=== PATIENT | male | born 1955 | race African-American/Black ===

== ENCOUNTER 2016-10-17 18:41 | Inpatient (IN) ==
[2016-10-17] MEDS ORDERED: FUROSEMIDE 40 MG/4 ML VIAL IV STA (19:11)
[2016-10-17] MEDS ORDERED: FUROSEMIDE 40 MG/4 ML VIAL ONE (19:38)
--- NOTE | 2016-10-17 19:54 | XRay Report ---
XR chest 1V portable Indication: Shortness of breath. Comparison: None. Technique: Portable AP chest was performed. Findings: Heart size is normal. Pulmonary vasculature appears within normal limits. No significant abnormality of the mediastinal contours demonstrated. Lungs are clear. Mild elevation of the right hemidiaphragm is present. Bones and soft tissues demonstrate no significant abnormalities. AICD is present. No break in continuity is suggested. Impression: 1. No evidence of acute pathology. 10/17/2016 7:48 PM PROCEDURE INTERPRETED AT [facility] DEPARTMENT OF RADIOLOGY Final Report Signed by: Dr. Mani Harmon
[2016-10-17 20:06] LABS: Apearance,Urine CLEAR (Clear); Bilirubin,Urine Negative (Negative); Blood, Urine Small mg/dL (Negative); Glucose,Urine (UA) Negative (Negative); Ketones,Urine Negative (Negative); Mucus,Urine Occasional /LPF (Occasional); Nitrite,Urine Negative (Negative); Protein,Urine Negative; RBC,Urine <1 /HPF (0-4); Urine Color Yellow (Yellow); Urine Specific Gravity 1.011 (1.001-1.035); Urine Urobilinogen < 2.0 EU/DL (0.2-1.0)
[2016-10-17 20:31] LABS: Basophils % 0.3 % (0.0-0.8); Eosinophils # 0.1 10*3/uL (0.0-0.87); Eosinophils % 1.4 % (0.00-10.9); Hematocrit 40.4 VOL% (42.0-52.0); Hemoglobin 13.9 GM/DL (14.0-18.0); Immature Granulocytes % 0.3 %; Immature Granulocytes Absolute 0.03 #; Lymphocytes # 0.7 10*3/uL (1.4-4.0); Mean Corpuscular HGB Conc 34.4 GM/DL (32-36); Mean Corpuscular Hemoglobin 29 PG (27-34); Mean Corpuscular Volume 84.3 FL (87-102); Monocytes # 0.6 10*3/uL (0.11-0.8); Monocytes % 6.3 % (1.7-12.7); Neutrophils # 7.3 10*3/uL (1.4-7.4); Neutrophils % 83.7 % (38.7-73.9); Platelet Count 129 T/CUMM (130-400); Red Blood Count 4.79 MC/CUMM (3.8-5.5); Red Cell Distribution Width 19.1 % (9.3-17.3); White Blood Count 8.7 T/CUMM (4-12)
[2016-10-17] MEDS ORDERED: ALBUTEROL/IPRATROPIUM 3 ML NEB RESP TX STA (20:50)
[2016-10-17 20:52] LABS: ABG Base Excess 4.4 MMOL/L (-2.5-2.5); ABG HCO3 28.3 MMOL/L (20-26); ABG Oxygen Saturation 99.5 % (95-100); ABG PCO2 48.9 MM HG (35-48); ABG TCO2 26.2 MMOL/L (23-27)
[2016-10-17 20:53] LABS: Alanine Aminotransferase 27 U/L (16-61); Albumin 4.2 G/DL (3.4-5.0); Alkaline Phosphatase 98 U/L (45-117); Aspartate Amino Transferase 16 U/L (0-37); Bilirubin,Total < 0.39 MG/DL (0.2-1.0); Blood Urea Nitrogen 9 MG/DL (7-18); Calcium 8.9 MG/DL (8.5-10.1); Glucose 98 MG/DL (74-106); Osmolality,Calculated 277.4 MOS/KG (273-304); Potassium 3.9 MMOL/L (3.5-5.1); Sodium 140 MMOL/L (136-145); Total Protein 7.8 G/DL (6.4-8.3); Troponin I Only < 0.015 NG/ML (0.00-0.045)
[2016-10-17] MEDS ORDERED: methylPREDNISolone SOD SUC 125 MG/2 ML VIAL IV STA (21:32)
[2016-10-17] MEDS ORDERED: ONDANSETRON 4 MG/2 ML VIAL IV PRN (21:37)
[2016-10-17] MEDS ORDERED: ZALEPLON 5 MG CAPSULE PO PRN (21:37)
--- NOTE | 2016-10-17 21:38 | Emergency Department Note ---
IKenzie Mantricia, am scribing for, and in the presence of, Obi Gordon MD 19:16. Heidi Bates Hans, MD, personally performed the services described in this documentation, ascribed by Isma Espino in my presence, and it is both accurate and complete . Arrival - Arrival Chief Complaint: Shortness of Breath Stated Complaint: sob ED Nursing Triage Note: pt to er 12 via ems coming from home with sob onset this am around 0700. pt denies any cp. Mode of Arrival: Stretcher Limitations: No Limitations Source: Patient - History of Present Illness HPI Narrative: Pt is a 61 y/o black male arriving to ED by EMS with c/o SOB that onset 0700 this morning. He denies having any chest pain but does report that he has a pacemaker placed. 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 He does admit to smoking in the past. At time of exam, pt's blood pressure is 130/77. No other complaints were reported to ED. Onset (ago): hour(s) Consistency: constant Severity: moderate Allergies/Adverse Reactions: Allergies Allergy/AdvReac Type Severity Reaction Status Date / Time No Known Allergies Allergy Unverified 10/17/16 18:50 Home Medications: Home Medications Medication Instructions Recorded Confirmed Type Aspirin EC Tab 81 mg PO DAILY 10/17/16 10/17/16 History Atorvastatin [Lipitor] 20 mg PO DAILY 10/17/16 10/17/16 History Hydrocodone/Acetaminophen [[place] 1 each PO BID 10/17/16 10/17/16 History 10-325 Tablet] Levothyroxine Tab [Synthroid Tab] 150 mcg PO DAILY 10/17/16 10/17/16 History Niacin (Inositol Niacinate) 500 mg PO DAILY 10/17/16 10/17/16 History [Niacin 500 mg Capsule] Omeprazole 20 mg PO DAILY 10/17/16 10/17/16 History Quetiapine Fumarate 800 mg PO BEDTIME 10/17/16 10/17/16 History buPROPion [Wellbutrin] 100 mg PO DAILY 10/17/16 10/17/16 History Review of System - Review of System 12 point system: reviewed and no additional remarkable complaints except as stated - Review of System Constitutional: Absent: chills, diaphoresis, fever Respiratory: Present: other (SOB). Absent: cough Cardiovascular: Absent: chest pain Gastrointestinal: Absent: abdominal pain, nausea, vomiting, diarrhea Medical,Surgical,& Family Hx - Social History Smoking Status: Current every day smoker Frequency of Alcohol Use: Occasionally Type of Drug Use: None Exam Vital Signs: Vital Signs Temperature 98.0 F 10/17/16 18:43 Pulse Rate 94 H 10/17/16 18:43 Respiratory Rate 20 10/17/16 19:08 Blood Pressure 114/73 10/17/16 18:43 O2 Sat by Pulse Oximetry 99 10/17/16 18:43 - General General appearance: alert, in no apparent distress - Head Head exam: Present: atraumatic, normocephalic - Eye Eye exam: Present: normal appearance, PERRL, EOMI - ENT ENT exam: Present: normal exam, normal oropharynx, mucous membranes moist - Neck Neck exam: Present: normal inspection - Chest Chest inspection: Present: normal inspection - Respiratory Respiratory exam: Present: other (bilateral crackles) - Cardiovascular Cardiovascular exam: Present: regular rate, normal rhythm, normal heart sounds - Abdominal Exam Abdominal exam: Present: soft. Absent: distention, tenderness, guarding, rebound - Extremities Exam Extremities exam: Present: normal inspection - Back Exam Back exam: Present: normal inspection - Neurological Exam Neurological exam: Present: alert, oriented X3, CN II-XII intact - Psychiatric Psychiatric exam: Present: normal affect, normal mood - Skin Skin exam: Present: warm, dry, intact, normal color Course Course Narrative: This patient was evaluated in the ER and also treated with BiPAP settings of 12/ 5 with 40% of FiO2. His ABG did not look too bad and his initial treatment was based on a diagnosis of CHF exacerbation. He had a Sanz catheter placed and responded promptly to IV Lasix. His EKG and troponin did not show any evidence of cardiac issues acutely and his BNP actually ended up coming back normal. Once he was on BiPAP for a little while he had a little bit of wheezing and does have a history of smoking and COPD so we also treated him with a neb treatment and some steroids. It appears as though this is a mixed CHF/COPD exacerbation and I discussed with the hospitalist on-call who agreed to come and see him for admission. Results - Labs CBC & BMP: 10/17/16 19:00 10/17/16 19:00 Lab Results: I have reviewed the patients labs - Diagnostic Findings Procedure: Chest x-ray: report reviewed by me (No evidence of acute pathology. ) Disposition Clinical Impression: Congestive heart failure, Acute exacerbation of chronic obstructive airways disease Case discussed with: patient Disposition: Still a Patient Condition: Guarded Time of Disposition: 21:38
[2016-10-17] MEDS ORDERED: POTASSIUM CHLORIDE 20 MEQ TABLET PO ONE (21:40)
--- NOTE | 2016-10-17 21:41 | Hospitalist History & Physical ---
Assessment and Plan (1) Acute exacerbation of chronic obstructive airways disease Status: Acute Assessment and plan: Consult pulmonary Antibiotics, steroids, bronchodilators Repeat chest x-ray in a.m. Current Visit: Yes (2) Congestive heart failure Status: Acute Assessment and plan: Cardiology consult, IV Lasix, echocardiogram Current Visit: Yes Qualifiers: Congestive heart failure type: unspecified congestive heart failure type Congestive heart failure chronicity: unspecified congestive heart failure chronicity Qualified Code(s): I50.9 - Heart failure, unspecified (3) Hypothyroid Status: Acute Assessment and plan: Continue Synthroid Current Visit: Yes Qualifiers: Hypothyroidism type: acquired Qualified Code(s): E03.9 - Hypothyroidism, unspecified History of Present Illness Chief complaint: SOB, cough History of present illness: Mr. Sen is a 61 year old male presents to the ER with a 2-3 day hx of cough, wheezing, and SOB. He denies fever or chills. No recent hospitalizations. He has a history of pacemaker placement. He follows with cardiology in [place]. He lives in [facility]. He cannot name his primary care physician. He reports a history of smoking 1 pack per day but denies COPD. He denies a history of congestive heart failure. Judging by his medications he has thyroid disease and hypercholesterolemia. He is unable to provide much history. He is conversationally dyspneic and has audible wheezing and rhonchi. Symptoms have been progressive over the last 3-4 days. He received Lasix in the emergency department and has had a good urine output since that time. Home Medications Medication Instructions Recorded Confirmed Type Aspirin EC Tab 81 mg PO DAILY 10/17/16 10/17/16 History Atorvastatin [Lipitor] 20 mg PO DAILY 10/17/16 10/17/16 History Hydrocodone/Acetaminophen [[place] 1 each PO BID 10/17/16 10/17/16 History 10-325 Tablet] Levothyroxine Tab [Synthroid Tab] 150 mcg PO DAILY 10/17/16 10/17/16 History Niacin (Inositol Niacinate) 500 mg PO DAILY 10/17/16 10/17/16 History [Niacin 500 mg Capsule] Omeprazole 20 mg PO DAILY 10/17/16 10/17/16 History Quetiapine Fumarate 800 mg PO BEDTIME 10/17/16 10/17/16 History buPROPion [Wellbutrin] 100 mg PO DAILY 10/17/16 10/17/16 History Allergies Allergy/AdvReac Type Severity Reaction Status Date / Time No Known Allergies Allergy Unverified 10/17/16 18:50 Medical,Surgical,& Family Hx - Medical History Cardio: History of: Hypertension, Pacemaker Psychological: History of: Depression Endocrine: History of: Thyroid Disorder - Surgical History Additional Surgical History: Pacemaker placement - Family History Family History: Reports;: Family Hypertension - Social History Smoking Status: Current every day smoker (1 pack per day) Have you smoked in the last 12 months: Yes Frequency of Alcohol Use: Occasionally Type of Drug Use: None Marital Status: Functional capacity: independent ambulation 12 point system: reviewed and no additional remarkable complaints except as stated - Respiratory Respiratory: Present: cough, dyspnea, wheezing Exam - Constitutional Vitals: Period Temp Pulse Resp BP Sys/[place] Rosario Pulse Ox Last 24 Hr 98.0 F-98.0 F 94-94 20-20 114-114/73-73 99 Exam: Constitutional System: Mild distress. No tremulousness. Head: Normocephalic, atraumatic. Ears, Nose and Throat System: No pain or tenderness. No epistaxis or discharge Eyes System: Pupils equal, round, and reactive. Extraocular muscles intact. Neck: Supple, without adenopathy, No jugular venous distention. No thyromegaly, neck mass, or prior surgery apparent. Respiratory System: Chest wheezing and rhonchi noted bilaterally Cardiovascular System: Heart with regular rate and rhythm. No murmur. Pacemaker noted GI System: Abdomen soft, nontender. Normo active bowel sounds present. Musculoskeletal System: limbs with no pedal edema. Full distal pulses. Neurological System: No discernable sensory deficit. No aphasia Psychiatric System: Conversation is rational Results - Labs CBC & BMP: 10/17/16 19:00 10/17/16 19:00 Lab Results: I have reviewed the past 24 hour labs - Diagnostic Findings Procedure: Chest x-ray: image reviewed by me, report reviewed by me
[2016-10-17] MEDS ORDERED: methylPREDNISolone SOD SUC 125 MG/2 ML VIAL ONE (22:14)
[2016-10-17] MEDS: methylPREDNISolone SOD SUC 40 MG/1 ML VIAL IV SCH (23:40)
[2016-10-17] MEDS: LEVOFLOXACIN INJ 750 MG in PREMIX 1 EACH IV SCH (23:41)
[2016-10-18] MEDS: ALBUTEROL/IPRATROPIUM 3 ML NEB RESP TX SCH ×4 (01:18→19:22)
[2016-10-18 04:48] LABS: Calcium 8.5 MG/DL (8.5-10.1); Magnesium 2.5 MG/DL (1.8-2.4); Osmolality,Calculated 278.5 MOS/KG (273-304); Potassium 4.4 MMOL/L (3.5-5.1); Risk Ratio 2.39; VLDL CHOLESTEROL 12.8 MG/DL
[2016-10-18] MEDS: methylPREDNISolone SOD SUC 40 MG/1 ML VIAL IV SCH ×3 (06:36→23:13)
[2016-10-18] MEDS: LEVOTHYROXINE 150 MCG TABLET PO SCH (06:36)
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
--- NOTE | 2016-10-18 08:03 | XRay Report ---
XR chest 1V portable Indication: Shortness of breath Comparison: 17 October 2016 Findings: The heart and mediastinum are stable in size and configuration. Pacemaker device is unchanged in position. The pulmonary vascularity is normal in caliber. No lung infiltrates, effusions, pneumothorax or other abnormality is demonstrated. Impression: No acute cardiopulmonary disease. PROCEDURE INTERPRETED AT [facility] DEPARTMENT OF RADIOLOGY Final Report Signed by: Dr. Mario Alexandre
--- NOTE | 2016-10-18 08:52 | Hospitalist Progress Note ---
Hospitalist: Subjective Interval history: Mr. Sen is a 61 BM who presented to the emergency room with a 2-3 day history of coughing, wheezing, and shortness of breath. The patient reports that over the last 2-3 days his breathing significantly worsened with wheezing noted. He denies any change in medications, illicit drug use, or variation in his normal medical regimen. The patient has a history of cardiac pacemaker, long-term smoker, and denies a history of heart failure. The patient was seen in ICU and is a poor historian. The patient is known to Dr. Sanon out of [place], Cardiology. The patient denies any cardiac history other than a recent pacemaker placement. The patient insists that he is very active daily without chest pain, discomfort, or tightness. He denies any swelling in his lower extremities or otherwise. The patient denies fever, chills, nausea, vomiting and admits a productive cough, wheezing, and shortness of breath. Patient is being treated for bronchitis and COPD exacerbation. Chest x-ray and BNP are negative for congestive heart failure. Cardiac biomarkers are negative. Cardiology plans to perform an echocardiogram today. There is their recommendation to continue management for acute exacerbation of chronic obstructive pulmonary disease. I will obtain a pulmonary consultation. Exam - Constitutional Vitals: Period Temp Pulse Resp BP Sys/[place] Rosario Pulse Ox Last 24 Hr 96.8 F-98.9 F 68-94 12-30 114-143/73-95 94-100 General appearance: no acute distress - Head Head exam: Present: normal inspection - Neck Neck exam: Present: normal inspection - Respiratory Respiratory exam: Present: rhonchi (Scattered), wheezes (Mild) - Cardiovascular Cardiovascular exam: Present: regular rate and rhythm - GI/Abdominal GI/Abdominal exam: Present: normal bowel sounds, soft, other (Nontender with no palpable masses or hepatosplenomegaly.) - Extremities Exam Extremities exam: Present: normal inspection - Neurological Exam Neurological exam: Present: alert, oriented X3 - Psychiatric Psychiatric exam: Present: normal affect - Skin Skin exam: Present: normal color, warm Results - Labs CBC & BMP: 10/17/16 19:00 10/18/16 04:08 Specialty Discharge - Follow Up or Referrals
[2016-10-18] MEDS ORDERED: PANTOPRAZOLE 40 MG TABLET PO SCH (09:00)
[2016-10-18] MEDS ORDERED: FUROSEMIDE 40 MG/4 ML VIAL IV SCH (09:00)
[2016-10-18] MEDS: ENOXAPARIN 40 MG/0.4 ML SYRINGE SUBCUT SCH (09:21)
[2016-10-18] MEDS: ATORVASTATIN 20 MG TABLET PO SCH (09:22)
[2016-10-18] MEDS: PANTOPRAZOLE 40 MG TABLET PO SCH (09:22)
[2016-10-18] MEDS: buPROPion 100 MG TABLET PO SCH (09:22)
[2016-10-18] MEDS: ASPIRIN EC 81 MG TABLET PO SCH (09:22)
[2016-10-18] MEDS: NIACIN 500 MG TABLET PO SCH (09:23)
[2016-10-18 09:32] LABS: Basophils % 0.1 % (0.0-0.8); Hematocrit 39.5 VOL% (42.0-52.0); Hemoglobin 13.4 GM/DL (14.0-18.0); Immature Granulocytes % 0.7 %; Immature Granulocytes Absolute 0.05 #; Lymphocytes # 0.6 10*3/uL (1.4-4.0); Lymphocytes % 8.1 % (21.2-54.2); Mean Corpuscular HGB Conc 33.9 GM/DL (32-36); Mean Corpuscular Hemoglobin 29 PG (27-34); Mean Corpuscular Volume 84.9 FL (87-102); Mean Platelet Volume 11.4 FL (9.6-12.0); Monocytes # 0.1 10*3/uL (0.11-0.8); Monocytes % 0.7 % (1.7-12.7); Neutrophils # 6.7 10*3/uL (1.4-7.4); Neutrophils % 90.4 % (38.7-73.9); Platelet Count 133 T/CUMM (130-400); Red Blood Count 4.65 MC/CUMM (3.8-5.5); Red Cell Distribution Width 19.4 % (9.3-17.3); White Blood Count 7.4 T/CUMM (4-12)
--- NOTE | 2016-10-18 09:44 | EKG Report ---
Stationary ECG Study [facility] ER Test Date: 10/17/2016 6:38:48 PM Pat Name: TORY MATT Department: Room: 123 Gender: M Data Specialist: : 1955 Requested by: Obi Gordon Order Number: [id number] Reading MD: ALEXANDRIA SOLARES Intervals [place] Rate: 95 P: -12 NC: 161 QRS: 142 QRSD: 170 T: -28 QT: 418 QTc: 471 Interpretive Statements ELECTRONIC VENTRICULAR PACEMAKER ABNORMAL RHYTHM ECG Electronically Signed On 10-18-16 14:01:01 CDT by ALEXANDRIA SOLARES [email or web address]
[2016-10-18 09:46] LABS: Calcium 9.3 MG/DL (8.5-10.1); Osmolality,Calculated 282.5 MOS/KG (273-304); Potassium 4.2 MMOL/L (3.5-5.1)
[2016-10-18 09:55] LABS: Free T4 (Free Thyroxine) 1.02 NG/DL (0.76-1.46); Thyroid Stimulating Hormone 0.567 uIU/ml (0.358-3.74)
--- NOTE | 2016-10-18 17:47 | ECHO Report ---
Mahad Sen Exam Date: 10/18/2016 08:14 Referring Physician: Technologist: Crista Moe Age: 61 Ht (in): 73 Wt (lb): 270 Gender: M Exam Location: [facility] Echo Indications: CHF, COPD, hypothyroidism, Tobacco abuse, blindness RT. eye, SOB BP: 141 / 95 HR: 74 Rhythm: Sinus Technical Quality: IMPRESSIONS Normal left ventricular size, with mild concentric hypertrophy, with abnormal septal motion due to paced rhythm, and normal systolic thickening. Estimated left ventricular ejection fraction 55%. Grade 1 diastolic dysfunction. Mild biatrial enlargement. The pacemaker leads are not well visualized on this echo. MEASUREMENTS (Male / Female) Normal Values 2D ECHO LV Diastolic Diameter PLAX 4.2 cm 4.2 - 5.9 / 3.9 - 5.3 cm LV Systolic Diameter PLAX 3.0 cm LV Fractional Shortening PLAX 27.7 % IVS Diastolic Thickness 1.1 cm 0.6 - 1.0 / 0.6 - 0.9 cm LVPW Diastolic Thickness 1.1 cm 0.6 - 1.0 / 0.6 - 0.9 cm Aortic Root Diameter 2.5 cm LA Systolic Diameter LX 3.0 cm 3.0 - 4.0 / 2.7 - 3.8 cm FINDINGS Left Ventricle Normal left ventricular size, with mild concentric hypertrophy, with abnormal septal motion due to paced rhythm, and normal systolic thickening. Estimated left ventricular ejection fraction 55%. Grade 1 diastolic dysfunction Right Ventricle Normal right ventricular size and systolic function. Right Atrium Mildly dilated right atrium. Left Atrium Mildly dilated left atrium. Mitral Valve Morphologically normal mitral valve. Trace insufficiency. Aortic Valve The aortic valve is trileaflet and has normal motion. No stenosis or insufficiency. Tricuspid Valve Morphologically normal tricuspid valve. No significant insufficiency, insufficient data to estimate pulmonary artery systolic pressure. Pulmonic Valve Pulmonic valve is not well visualized. Pericardium No pericardial effusion. Aorta Normal size aortic root and proximal ascending aorta. Ham Oreilly (Electronically Signed) Final Date: 18 October 2016 17:46
[2016-10-18] MEDS ORDERED: QUEtiapine 100 MG TABLET PO SCH (21:00)
[2016-10-18] MEDS: LEVOFLOXACIN INJ 750 MG in PREMIX 1 EACH IV SCH (23:12)
[2016-10-19] MEDS: ALBUTEROL/IPRATROPIUM 3 ML NEB RESP TX SCH ×4 (00:34→19:46)
[2016-10-19 03:38] LABS: ABG Base Excess 3.7 MMOL/L (-2.5-2.5); ABG HCO3 27.7 MMOL/L (20-26); ABG Oxygen Saturation 95.1 % (95-100); ABG PCO2 39.5 MM HG (35-48); ABG PH 7.463 (7.35-7.45); ABG TCO2 28.9 MMOL/L (23-27); Allen Test Positive; Pt O2 Delivery Device Room Air
[2016-10-19] MEDS: LEVOTHYROXINE 150 MCG TABLET PO SCH (06:03)
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
[2016-10-19] MEDS: buPROPion 100 MG TABLET PO SCH (08:41)
[2016-10-19] MEDS: ATORVASTATIN 20 MG TABLET PO SCH (08:41)
[2016-10-19] MEDS: methylPREDNISolone SOD SUC 40 MG/1 ML VIAL IV SCH ×2 (08:41→21:53)
[2016-10-19] MEDS: ASPIRIN EC 81 MG TABLET PO SCH (08:41)
[2016-10-19] MEDS: NIACIN 500 MG TABLET PO SCH (08:41)
[2016-10-19] MEDS: PANTOPRAZOLE 40 MG TABLET PO SCH (08:41)
[2016-10-19] MEDS: ENOXAPARIN 40 MG/0.4 ML SYRINGE SUBCUT SCH (08:42)
--- NOTE | 2016-10-19 09:03 | Cardiology Consult Note ---
Santos Bates Lesley, [place], am scribing for, and in the presence of, Ashtyn Robles NP 09:03. Assessment and Plan - Time spent with patient Time spent with patient: Greater than 30 minutes Time spent discussing smoking cessation with patient: 3 to 10 minutes (1) Acute exacerbation of chronic obstructive airways disease Status: Acute Assessment and plan: SEE LIST AND PLAN BELOW Current Visit: Yes (2) Hypothyroid Status: Chronic Assessment and plan: SEE LIST AND PLAN BELOW Current Visit: Yes Qualifiers: Hypothyroidism type: acquired Qualified Code(s): E03.9 - Hypothyroidism, unspecified (3) Tobacco abuse Status: Chronic Assessment and plan: SEE LIST AND PLAN BELOW Current Visit: Yes (4) Cardiac pacemaker Status: Chronic Assessment and plan: SEE LIST IN PLAN BELOW Current Visit: Yes (5) Bronchitis Status: Acute Assessment and plan: SEE LIST IN PLAN BELOW Current Visit: Yes History of Present Illness - Data of Consult Patient: new to practice Consult date: 10/18/16 Requesting Physician: Rachna Grant - Consult Narrative Reason for consult: SOB 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 Sen is a 61 BM who presented to the emergency room with a 2-3 day history of coughing, wheezing, and shortness of breath. The patient reports that over the last 2-3 days his breathing significantly worsened with wheezing noted. He denies any change in medications, illicit drug use, or variation in his normal medical regimen. The patient has a history of cardiac pacemaker, long-term smoker, and denies a history of heart failure. The patient was seen in ICU and is a poor historian. The patient is known to Dr. Sanon out of [place], Cardiology. The patient denies any cardiac history other than a recent pacemaker placement. The patient insists that he is very active daily without chest pain, discomfort, or tightness. He denies any swelling in his lower extremities or otherwise. The patient denies fever, chills, nausea, vomiting and admits a productive cough, wheezing, and shortness of breath. Patient is being treated for bronchitis and COPD exacerbation. Chest x-ray and BNP are negative for congestive heart failure. Cardiac biomarkers are negative. We will plan to get an echocardiogram today. ASSESSMENT/PLAN: 1. Acute COPD exacerbation-wheezes noted bilaterally. Continue antibiotics and steroids. 2. Bronchitis-continue antibiotics and steroids. Followed by pulmonology. 3. Cardiac pacemaker-echocardiogram today. 4. Tobacco use-discussed the merits of tobacco cessation with the patient. CC: Dr. Sanon - Home Medications and Allergies Home Medications: Home Medications Medication Instructions Recorded Confirmed Type Aspirin EC Tab 81 mg PO DAILY 10/17/16 10/17/16 History Atorvastatin [Lipitor] 20 mg PO DAILY 10/17/16 10/17/16 History Hydrocodone/Acetaminophen [[place] 1 each PO BID 10/17/16 10/17/16 History 10-325 Tablet] Levothyroxine Tab [Synthroid Tab] 150 mcg PO DAILY 10/17/16 10/17/16 History Niacin (Inositol Niacinate) 500 mg PO DAILY 10/17/16 10/17/16 History [Niacin 500 mg Capsule] Omeprazole 20 mg PO DAILY 10/17/16 10/17/16 History Quetiapine Fumarate 800 mg PO BEDTIME 10/17/16 10/17/16 History buPROPion [Wellbutrin] 100 mg PO DAILY 10/17/16 10/17/16 History Allergies/Adverse Reactions: Allergies Allergy/AdvReac Type Severity Reaction Status Date / Time No Known Allergies Allergy Unverified 10/17/16 18:50 Review of systems: REVIEW OF SYSTEMS: - Constitutional Constitutional: Present: Fatigue. Absent: syncope, anorexia, night sweats - EENT Eyes: Absent: blurry vision, loss of vision, diplopia Ears: Absent: decreased hearing, ear pain, ear discharge - Cardiovascular Cardiovascular: Denies: chest pain with exertion. Denies edema, palpitations. Absent: chest pain with deep breath, claudication, - Respiratory Respiratory: Present: STEARNS, cough, wheezing. Absent: hemoptysis, change in phlegm color - Gastrointestinal Gastrointestinal: Denies: constipation. Absent: abdominal pain, hematemesis, hematochezia, melena, change in bowel habits, nausea - Genitourinary Genitourinary: Absent: difficulty urinating, dysuria, urinary hesitancy, flank pain - Musculoskeletal Musculoskeletal: Present: back pain Absent: joint swelling, muscle cramps, muscle weakness - Neurological Neurological: Present: normal gait without frequent falls. Absent: dizziness, hemiparesis - Psychiatric Psychiatric: Absent: anxiety, depression, difficulty concentrating - Endocrine Endocrine: Present: fatigue. Absent: cold intolerance, heat intolerance, polyuria, polyphagia, polydipsia - Hematologic/Lymphatic Hematologic/Lymphatic: Present: easy bruising. Absent: easy bleeding, easy bruisability -Integumentary Integumentary: Absent: lesions, rashes, skin breakdown - Constitutional Constitutional: Present: as per HPI - Cardiovascular Cardiovascular: Present: as per HPI, dyspnea. Absent: chest pain at rest, chest pain with activity, edema - Respiratory Respiratory: Present: cough, dyspnea, dyspnea on exertion, wheezing - Gastrointestinal Gastrointestinal: Absent: abdominal pain, change in bowel habits - Neurological Neurological: Present: as per HPI Medical,Surgical,& Family Hx - Medical History Cardio: History of: Hypertension, Pacemaker No history of: CHF (patient denies, no records), CAD Psychological: History of: Depression HEENT: History of: Eye Problem (right eye) Endocrine: History of: Thyroid Disorder Respiratory: History of: COPD - Family History Family History: Reports;: Family Heart Disease, Family Hypertension Denies;: Family Anesthesia Reaction, Family Cancer, Family Diabetes, Family Hematology, Family Psychiatric Problems, Family Stroke - Social History Smoking Status: Current every day smoker (1 pack per day) Have you smoked in the last 12 months: Yes Time spent discussing smoking cessation with patient: 3 to 10 minutes Frequency of Alcohol Use: Occasionally Type of Drug Use: None Functional capacity: independent ambulation Physical Examination Vital Signs Temp Pulse Resp BP Pulse Ox 98.0 F 94 H 20 114/73 99 10/17/16 18:43 10/17/16 18:43 10/17/16 18:43 10/17/16 18:43 10/17/16 18:43 Exam: General: Calm and mildly cooperative. Appears comfortable. HEENT: normocephalic, atraumatic. Mucous membranes moist. No jaundice noted. Conjunctiva moist and clear, sclerae anicteric. Neck: No JVD/HJR, no thyromegaly or lymphadenopathy noted.] Cardiac: Regular rate and rhythm. No murmur rub or gallop. PMI is nondisplaced. Lungs: Bilateral wheezing throughout to auscultation without accessory muscle use to assist the respiratory pattern. Oxygen in use via nasal cannula. Abdomen: Soft, bowel sounds normoactive. Nontender and nondistended. No abdominal bruit or thrill noted. No masses noted. Musculoskeletal: No fluid collection. Extremities: No clubbing, cyanosis noted. No edema noted. Upper extremity pulses 2+. Lower extremity pulses 2+. Capillary refill less than 3 seconds. Skin: No unusual lesions or rashes. No skin breakdown appreciated. Neuro: Awake, alert and oriented 3. Moves all extremities well without hemiparesis or paralysis. No essential tremor is appreciated. Result/EKG - Labs CBC & BMP: 10/18/16 09:03 10/18/16 09:03 Lab Results: I have reviewed the past 24 hour labs Labs: Laboratory Results - last 24 hr 10/17/16 10/17/16 10/17/16 19:00 19:00 19:00 WBC 8.7 RBC 4.79 Hgb 13.9 L Hct 40.4 L MCV 84.3 L MCH 29 MCHC 34.4 RDW 19.1 H Plt Count 129 L Neut % (Auto) 83.7 H Lymph % (Auto) 8.0 L [place] % (Auto) 6.3 Eos % (Auto) 1.4 Baso % (Auto) 0.3 Neut # (Auto) 7.3 Lymph # (Auto) 0.7 L [place] # (Auto) 0.6 Eos # (Auto) 0.1 Baso # (Auto) 0.0 Immature Gran % 0.3 Nucleated RBC % 0.0 Immature Gran # 0.03 Nucleated RBCs # 0.00 Immature Plt Fraction 0.0 ABG pH ABG pCO2 ABG pO2 ABG HCO3 ABG Total CO2 ABG O2 Saturation ABG Base Excess Sodium 140 Potassium 3.9 Chloride 103 Carbon Dioxide 32 Anion Gap 8.9 BUN 9 Creatinine 0.90 GFR Calculation 149 BUN/Creatinine Ratio 10.00 Glucose 98 Hemoglobin A1c Calculated Osmolality 277.4 Lactic Acid Calcium 8.9 Magnesium Total Bilirubin < 0.39 AST 16 ALT 27 Alkaline Phosphatase 98 Total Creatine Kinase CK-MB (CK-2) Troponin I B-Natriuretic Peptide 49 Total Protein 7.8 Albumin 4.2 Globulin 3.6 H Albumin/Globulin Ratio 1.1 Triglycerides Cholesterol LDL Cholesterol VLDL Cholesterol HDL Cholesterol Heart Disease Risk Ratio Lipase 67.0 L Urine Color Urine Appearance Urine pH Ur Specific [place] Urine Protein Urine Glucose (UA) Urine Ketones Urine Blood Urine Nitrate Urine Bilirubin Urine Urobilinogen Urine Leukocytes Urine RBC Urine Mucus Ur Culture Indicated? 10/17/16 10/17/16 10/17/16 19:00 19:12 19:12 WBC RBC Hgb Hct MCV MCH MCHC RDW Plt Count Neut % (Auto) Lymph % (Auto) [place] % (Auto) Eos % (Auto) Baso % (Auto) Neut # (Auto) Lymph # (Auto) [place] # (Auto) Eos # (Auto) Baso # (Auto) Immature Gran % Nucleated RBC % Immature Gran # Nucleated RBCs # Immature Plt Fraction ABG pH ABG pCO2 ABG pO2 ABG HCO3 ABG Total CO2 ABG O2 Saturation ABG Base Excess Sodium Potassium Chloride Carbon Dioxide Anion Gap BUN Creatinine GFR Calculation BUN/Creatinine Ratio Glucose Hemoglobin A1c Calculated Osmolality Lactic Acid 1.3 Calcium Magnesium Total Bilirubin AST ALT Alkaline Phosphatase Total Creatine Kinase 177 CK-MB (CK-2) 2.4 Troponin I < 0.015 B-Natriuretic Peptide Total Protein Albumin Globulin Albumin/Globulin Ratio Triglycerides Cholesterol LDL Cholesterol VLDL Cholesterol HDL Cholesterol Heart Disease Risk Ratio Lipase Urine Color Yellow Urine Appearance Clear Urine pH 5.0 Ur Specific [place] 1.011 Urine Protein Negative Urine Glucose (UA) Negative Urine Ketones Negative Urine Blood Small Urine Nitrate Negative Urine Bilirubin Negative Urine Urobilinogen < 2.0 H Urine Leukocytes Negative Urine RBC <1 Urine Mucus Occasional Ur Culture Indicated? Not indicated 10/17/16 10/18/16 10/18/16 20:43 04:08 04:08 WBC RBC Hgb Hct MCV MCH MCHC RDW Plt Count Neut % (Auto) Lymph % (Auto) [place] % (Auto) Eos % (Auto) Baso % (Auto) Neut # (Auto) Lymph # (Auto) [place] # (Auto) Eos # (Auto) Baso # (Auto) Immature Gran % Nucleated RBC % Immature Gran # Nucleated RBCs # Immature Plt Fraction ABG pH 7.400 ABG pCO2 48.9 H ABG pO2 187.0 H ABG HCO3 28.3 H ABG Total CO2 26.2 ABG O2 Saturation 99.5 ABG Base Excess 4.4 H Sodium 139 Potassium 4.4 Chloride 104 Carbon Dioxide 30 Anion Gap 9.4 BUN 12 Creatinine 0.90 GFR Calculation 130 BUN/Creatinine Ratio 13.00 Glucose 127 H Hemoglobin A1c Calculated Osmolality 278.5 Lactic Acid Calcium 8.5 Magnesium 2.5 H Total Bilirubin AST ALT Alkaline Phosphatase Total Creatine Kinase CK-MB (CK-2) Troponin I B-Natriuretic Peptide 36 Total Protein Albumin Globulin Albumin/Globulin Ratio Triglycerides 64 Cholesterol 165 LDL Cholesterol 76.0 VLDL Cholesterol 12.8 HDL Cholesterol 69 H Heart Disease Risk Ratio 2.39 Lipase Urine Color Urine Appearance Urine pH Ur Specific [place] Urine Protein Urine Glucose (UA) Urine Ketones Urine Blood Urine Nitrate Urine Bilirubin Urine Urobilinogen Urine Leukocytes Urine RBC Urine Mucus Ur Culture Indicated? 10/18/16 04:08 WBC RBC Hgb Hct MCV MCH MCHC RDW Plt Count Neut % (Auto) Lymph % (Auto) [place] % (Auto) Eos % (Auto) Baso % (Auto) Neut # (Auto) Lymph # (Auto) [place] # (Auto) Eos # (Auto) Baso # (Auto) Immature Gran % Nucleated RBC % Immature Gran # Nucleated RBCs # Immature Plt Fraction ABG pH ABG pCO2 ABG pO2 ABG HCO3 ABG Total CO2 ABG O2 Saturation ABG Base Excess Sodium Potassium Chloride Carbon Dioxide Anion Gap BUN Creatinine GFR Calculation BUN/Creatinine Ratio Glucose Hemoglobin A1c 6.2 Calculated Osmolality Lactic Acid Calcium Magnesium Total Bilirubin AST ALT Alkaline Phosphatase Total Creatine Kinase CK-MB (CK-2) Troponin I B-Natriuretic Peptide Total Protein Albumin Globulin Albumin/Globulin Ratio Triglycerides Cholesterol LDL Cholesterol VLDL Cholesterol HDL Cholesterol Heart Disease Risk Ratio Lipase Urine Color Urine Appearance Urine pH Ur Specific [place] Urine Protein Urine Glucose (UA) Urine Ketones Urine Blood Urine Nitrate Urine Bilirubin Urine Urobilinogen Urine Leukocytes Urine RBC Urine Mucus Ur Culture Indicated? - Diagnostic Findings Procedure: Chest x-ray: report reviewed by me - EKG EKG results: interpreted by me, sinus rhythm (Paced) EKG shows: sinus rhythm Specialty Discharge - Follow Up or Referrals Travis Bates Bonnie E, NP, personally performed the services described in this documentation, ascribed by Erica Graham NP in my presence, and it is both accurate and complete .
--- NOTE | 2016-10-19 09:12 | Cardiology Progress Note ---
Assessment and Plan - Time spent with patient Time spent with patient: Greater than 30 minutes (1) Acute exacerbation of chronic obstructive airways disease Status: Acute Assessment and plan: SEE LIST AND PLAN BELOW Current Visit: Yes (2) Hypothyroid Status: Chronic Assessment and plan: SEE LIST AND PLAN BELOW Current Visit: Yes Qualifiers: Hypothyroidism type: acquired Qualified Code(s): E03.9 - Hypothyroidism, unspecified (3) Tobacco abuse Status: Chronic Assessment and plan: SEE LIST AND PLAN BELOW Current Visit: Yes (4) Cardiac pacemaker Status: Chronic Assessment and plan: SEE LIST IN PLAN BELOW Current Visit: Yes (5) Bronchitis Status: Acute Assessment and plan: SEE LIST IN PLAN BELOW Current Visit: Yes Cardiology - PN: Subj Interval history: 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 Sen, 61BM with history of permanent pacemaker implantation by Dr. Sanon of [place], [place]. He does not routinely follow up with cardiology, is a poor historian. Admitted October 17, 2016 for COPD exacerbation , bronchitis. Cardiology was consulted to rule out possible CHF. Echocardiogram: EF 55%, grade 1 diastolic dysfunction, no significant valvular abnormality. Chest x-ray revealed no acute abnormality, proBNP 49. Patient is not in congestive heart failure. Cardiac biomarkers negative, EKG is stable. OCTOBER 19, 2016: Patient has had a fair evening. His breathing has improved with antibiotics and steroids. Still has a moderate amount of wheezing. Denies chest pain, heaviness or tightness. Echocardiogram last evening was unremarkable. No labs this morning. LDL 76, therefore at goal. Continue atorvastatin. Patient's blood pressure is well controlled without antihypertensive. No arrhythmia noted. At this time, will further discuss with Dr. Oreilly and suspect we may sign off this afternoon as there seems to be no active cardiac conditions. Patient will follow up with Dr. Sanon at discharge. ASSESSMENT/PLAN: 1. ACUTE COPD EXACERBATION -improving with steroids and antibiotics. Dr. Hamilton is seen patient today and his tapering his steroids. 2. BRONCHITIS - improving. Continue current plan of care. 3. CARDIAC PACEMAKER -no arrhythmia noted per telemetry. No need for pacemaker interrogation as he follows up with Dr. Sanon in [place], [place]. 4. TOBACCO USE - the merits of tobacco cessation was thoroughly discussed for greater than 5 minutes today Exam (Progress Note) - Constitutional Vitals: Period Temp Pulse Resp BP Sys/[place] Pulse Ox Last 24 Hr 97.8 F-98.7 F 64-88 16-22 92-132/46-80 94-99 Exam: General: [Appears well with no apparent distress.] [Pleasant and cooperative. ] [Appears comfortable.] HEENT: [PERRL, normocephalic, atraumatic. Mucous membranes moist. No jaundice noted. Conjunctiva moist and clear, sclerae anicteric] Neck: No obvious JVD/HJR, no thyromegaly or lymphadenopathy noted. No carotid bruit appreciated Cardiac: [Regular rate and rhythm.] [No murmur rub or gallop.] Lungs: [End expiratory wheezes noted anteriorly and posteriorly, improved. No accessory muscle use to assist the respiratory pattern.] Using oxygen only intermittently. Abdomen: Soft, bowel sounds normoactive. Nontender and nondistended. No abdominal bruit or thrill noted. No masses noted. Musculoskeletal: No fluid collection. Decreased range of motion is noted. Extremities: No clubbing, cyanosis noted. [ No edema noted.] Upper extremity pulses 2+. Lower extremity pulses 2+. Capillary refill less than 3 seconds. Skin: No unusual lesions or rashes. No skin breakdown appreciated. Neuro: Awake, alert and oriented 3. Moves all extremities well without hemiparesis or paralysis. No essential tremor is appreciated. Result/EKG - Labs CBC & BMP: 10/18/16 09:03 10/18/16 09:03 Lab Results: I have reviewed the past 24 hour labs Labs: Laboratory Results - last 24 hr 10/18/16 10/18/16 10/18/16 04:05 09:03 09:03 WBC 7.4 RBC 4.65 Hgb 13.4 L Hct 39.5 L MCV 84.9 L MCH 29 MCHC 33.9 RDW 19.4 H Plt Count 133 MPV 11.4 Neut % (Auto) 90.4 H Lymph % (Auto) 8.1 L [place] % (Auto) 0.7 L Eos % (Auto) 0.0 Baso % (Auto) 0.1 Neut # (Auto) 6.7 Lymph # (Auto) 0.6 L [place] # (Auto) 0.1 L Eos # (Auto) 0.0 Baso # (Auto) 0.0 Immature Gran % 0.7 Nucleated RBC % 0.0 Immature Gran # 0.05 Nucleated RBCs # 0.00 Immature Plt Fraction 8.7 H ABG pH ABG pCO2 ABG pO2 ABG HCO3 ABG Total CO2 ABG O2 Saturation ABG Base Excess FiO2 Sodium 139 Potassium 4.2 Chloride 103 Carbon Dioxide 31 Anion Gap 9.2 BUN 15 Creatinine 1.10 GFR Calculation 102 BUN/Creatinine Ratio 13.00 Glucose 194 H Calculated Osmolality 282.5 Calcium 9.3 Free T4 1.02 TSH 3rd Generation 0.567 10/19/16 Unknown WBC RBC Hgb Hct MCV MCH MCHC RDW Plt Count MPV Neut % (Auto) Lymph % (Auto) [place] % (Auto) Eos % (Auto) Baso % (Auto) Neut # (Auto) Lymph # (Auto) [place] # (Auto) Eos # (Auto) Baso # (Auto) Immature Gran % Nucleated RBC % Immature Gran # Nucleated RBCs # Immature Plt Fraction ABG pH 7.463 H ABG pCO2 39.5 ABG pO2 73.0 L ABG HCO3 27.7 H ABG Total CO2 28.9 H ABG O2 Saturation 95.1 ABG Base Excess 3.7 H FiO2 21.00 Sodium Potassium Chloride Carbon Dioxide Anion Gap BUN Creatinine GFR Calculation BUN/Creatinine Ratio Glucose Calculated Osmolality Calcium Free T4 TSH 3rd Generation - EKG EKG results: interpreted by me EKG shows: sinus rhythm Specialty Discharge - Follow Up or Referrals
--- NOTE | 2016-10-19 09:51 | Hospitalist Progress Note ---
Assessment and Plan (1) Congestive heart failure Status: Acute Assessment and plan: Does not appear to have any evidence of acute congestive heart failure at the present time. Follow-up as recommended by cardiology. Current Visit: Yes Qualifiers: Congestive heart failure type: unspecified congestive heart failure type Congestive heart failure chronicity: unspecified congestive heart failure chronicity Qualified Code(s): I50.9 - Heart failure, unspecified (2) Acute exacerbation of chronic obstructive airways disease Status: Acute Assessment and plan: He appears to be significantly improved. I will begin to taper his corticosteroids as recommended by pulmonary. Current Visit: Yes Hospitalist: Subjective Interval history: He is doing well today. He is not experiencing shortness of breath, wheezing, or chest pain. Cardiology has indicated that they will discontinue following him because there is no active cardiovascular problem. Pulmonary continues to follow him and has recommended to begin tapering his corticosteroids. Exam - Constitutional Vitals: Period Temp Pulse Resp BP Sys/[place] Pulse Ox Last 24 Hr 97.8 F-98.7 F 64-88 16-22 92-132/46-80 94-100 General appearance: normal weight, no acute distress - Head Head exam: Present: normal inspection - Neck Neck exam: Present: normal inspection - Respiratory Respiratory exam: Present: clear to auscultation bilaterally - Cardiovascular Cardiovascular exam: Present: regular rate and rhythm - GI/Abdominal GI/Abdominal exam: Present: normal bowel sounds, soft, other (No palpable masses or hepatosplenomegaly.) - Extremities Exam Extremities exam: Present: normal inspection - Neurological Exam Neurological exam: Present: alert, oriented X3 - Psychiatric Psychiatric exam: Present: normal affect - Skin Skin exam: Present: normal color, warm, intact Results - Labs CBC & BMP: 10/18/16 09:03 10/18/16 09:03 Specialty Discharge - Follow Up or Referrals
[2016-10-19] MEDS: QUEtiapine 100 MG TABLET PO SCH (21:53)
[2016-10-19] MEDS: LEVOFLOXACIN INJ 750 MG in PREMIX 1 EACH IV SCH (23:18)
[2016-10-20] MEDS: ALBUTEROL/IPRATROPIUM 3 ML NEB RESP TX SCH ×4 (01:06→20:50)
[2016-10-20 05:52] LABS: Basophils % 0.1 % (0.0-0.8); Hematocrit 37.3 VOL% (42.0-52.0); Hemoglobin 12.7 GM/DL (14.0-18.0); Immature Granulocytes % 1.1 %; Immature Granulocytes Absolute 0.12 #; Lymphocytes # 0.7 10*3/uL (1.4-4.0); Lymphocytes % 6.9 % (21.2-54.2); Mean Corpuscular Hemoglobin 29 PG (27-34); Monocytes # 0.4 10*3/uL (0.11-0.8); NRBC # 0.02 10*3/uL; Neutrophils # 9.3 10*3/uL (1.4-7.4); Neutrophils % 87.9 % (38.7-73.9); Platelet Count 156 T/CUMM (130-400); Red Blood Count 4.44 MC/CUMM (3.8-5.5); Red Cell Distribution Width 19.5 % (9.3-17.3); White Blood Count 10.6 T/CUMM (4-12)
[2016-10-20] MEDS: LEVOTHYROXINE 150 MCG TABLET PO SCH (06:11)
[2016-10-20 06:14] LABS: Hypochromasia 2+; Lymphocytes 3 % (20-55); Microcytosis 1+; Platelet Estimate Decreased; Polychromasia Slight; Segmented Neutrophils 93 % (50-85); Total Cells Counted 100
[2016-10-20 06:24] LABS: Calcium 9.6 MG/DL (8.5-10.1); Osmolality,Calculated 284.4 MOS/KG (273-304); Potassium 4.1 MMOL/L (3.5-5.1)
--- NOTE | 2016-10-20 06:53 | Pulmonology Progress Note ---
Pulmonary - PN: Subj Interval history: This 61-year-old black male came in with an exacerbation of COPD. He is a long- term smoker. He is improved and was moved to the floor yesterday. Slept but is still coughing some. We can start reducing his steroids. 10/20/2016 patient continues to have some wheezing. Probably should not cut steroids further at this point. We need to obtain PFTs to document his COPD and check in severity. This will help us in choosing medications going forward. Exam (Progress Note) - Constitutional Vitals: Period Temp Pulse Resp BP Sys/[place] Pulse Ox Last 24 Hr 97.4 F-98.4 F 64-78 18-20 113-129/55-79 94-100 Exam: Patient's alert oriented vital signs normal. Right cornea opaque. Left pupil reactive to light. Throat is clear. Neck supple no bruits. Chest reveals prolonged expiratory phase with a few scattered rhonchi and expiratory wheezes. Heart normal rate rhythm no murmurs. Abdomen soft nontender no masses. Extremities no clubbing cyanosis edema. Calves nontender. Results - Labs CBC & BMP: 10/20/16 05:14 10/20/16 05:14 Lab Results: I have reviewed the past 24 hour labs Assessment and Plan (1) Acute exacerbation of chronic obstructive airways disease Status: Acute Assessment and plan: Patient is wheezing coughing acute dyspnea. Long-term history of smoking a pack of cigarettes per day longer. Certainly looks like acute bronchitis atop COPD. Treatment corticosteroids bronchodilators and antibiotics. Smoking cessation is stressed. There is no evidence of congestive heart failure either radiographically or by his normal BNP. 10/19/16 patient is a little better. We can start tapering steroids. 10/20/2016 patient's wheezing is a little worse today. Would not cut steroids any further at this point. Current Visit: Yes (2) Hypothyroid Status: Chronic Assessment and plan: Continuing the Synthroid Current Visit: Yes Qualifiers: Hypothyroidism type: acquired Qualified Code(s): E03.9 - Hypothyroidism, unspecified (3) Tobacco abuse Status: Chronic Assessment and plan: Discussed the need of stopping smoking. 10/19/2016 stressing importance of smoking cessation on a daily basis. Current Visit: Yes (4) Blindness, right eye, normal vision left eye Status: Acute Assessment and plan: Head injury as a child. Corneal opacity. Wonder if he would be candidate for corneal transplant. Current Visit: Yes Specialty Discharge - Follow Up or Referrals
[2016-10-20] MEDS: methylPREDNISolone SOD SUC 40 MG/1 ML VIAL IV SCH ×2 (08:16→20:19)
[2016-10-20] MEDS: ENOXAPARIN 40 MG/0.4 ML SYRINGE SUBCUT SCH (08:16)
[2016-10-20] MEDS: NIACIN 500 MG TABLET PO SCH (08:17)
[2016-10-20] MEDS: ATORVASTATIN 20 MG TABLET PO SCH (08:17)
[2016-10-20] MEDS: buPROPion 100 MG TABLET PO SCH (08:18)
[2016-10-20] MEDS: PANTOPRAZOLE 40 MG TABLET PO SCH (08:18)
[2016-10-20] MEDS: ASPIRIN EC 81 MG TABLET PO SCH (08:18)
--- NOTE | 2016-10-20 09:22 | Hospitalist Progress Note ---
Assessment and Plan (1) Congestive heart failure Status: Acute Assessment and plan: He does not appear to have any evidence of acute congestive heart failure at the present time. Follow-up as recommended by cardiology. Current Visit: Yes Qualifiers: Congestive heart failure type: unspecified congestive heart failure type Congestive heart failure chronicity: unspecified congestive heart failure chronicity Qualified Code(s): I50.9 - Heart failure, unspecified (2) Acute exacerbation of chronic obstructive airways disease Status: Acute Assessment and plan: He appears to be significantly improved. I will follow recommendations as per pulmonary. Current Visit: Yes Hospitalist: Subjective Interval history: He is doing well. He is not experiencing shortness of breath, wheezing, coughing, or chest pain. He is being followed by pulmonary. He is scheduled to undergo pulmonary function testing today. Exam - Constitutional Vitals: Period Temp Pulse Resp BP Sys/Del Rosario Pulse Ox Last 24 Hr 97.4 F-98.4 F 70-86 18-20 113-129/55-79 94-100 General appearance: normal weight, no acute distress - Head Head exam: Present: normal inspection - Neck Neck exam: Present: normal inspection - Respiratory Respiratory exam: Present: clear to auscultation bilaterally - Cardiovascular Cardiovascular exam: Present: regular rate and rhythm - GI/Abdominal GI/Abdominal exam: Present: normal bowel sounds, soft, other (Nontender with no palpable masses or hepatosplenomegaly.) - Extremities Exam Extremities exam: Present: normal inspection - Neurological Exam Neurological exam: Present: alert, oriented X3 - Skin Skin exam: Present: normal color, warm, intact Results - Labs CBC & BMP: 10/20/16 05:14 10/20/16 05:14 Specialty Discharge - Follow Up or Referrals
[2016-10-20] MEDS: QUEtiapine 100 MG TABLET PO SCH (20:19)
[2016-10-20] MEDS: LEVOFLOXACIN INJ 750 MG in PREMIX 1 EACH IV SCH (23:38)
[2016-10-21] MEDS: ALBUTEROL/IPRATROPIUM 3 ML NEB RESP TX SCH ×4 (01:19→19:48)
[2016-10-21] MEDS: LEVOTHYROXINE 150 MCG TABLET PO SCH (06:02)
--- NOTE | 2016-10-21 08:39 | Pulmonology Progress Note ---
Pulmonary - PN: Subj Interval history: This 61-year-old black male came in with an exacerbation of COPD. He is a long- term smoker. He is improved and was moved to the floor yesterday. Slept but is still coughing some. We can start reducing his steroids. 10/20/2016 patient continues to have some wheezing. Probably should not cut steroids further at this point. We need to obtain PFTs to document his COPD and check in severity. This will help us in choosing medications going forward. 10/21/2016 patient feels a little better but is still wheezing. We obtained PFTs yesterday and they do show moderate restriction and relatively mild obstruction. I think there is a good bit of hyperinflation and incomplete exhalation which makes restriction appear worse than it is. These primarily are consistent with his COPD. We need to stay at the same dose of medications and watch him a little longer. He is not ready for discharge yet. He will need a controller agent at discharge such as Anoro. Exam (Progress Note) - Constitutional Vitals: Period Temp Pulse Resp BP Sys/Del Rosario Pulse Ox Last 24 Hr 97.6 F-98.2 F 64-95 18-20 119-134/69-78 96-100 Exam: Patient's alert oriented vital signs normal. Right cornea opaque. Left pupil reactive to light. Throat is clear. Neck supple no bruits. Chest reveals prolonged expiratory phase with a few scattered rhonchi and expiratory wheezes. Heart normal rate rhythm no murmurs. Abdomen soft nontender no masses. Extremities no clubbing cyanosis edema. Calves nontender. Results - Labs CBC & BMP: 10/20/16 05:14 10/20/16 05:14 Lab Results: I have reviewed the past 24 hour labs Assessment and Plan (1) Acute exacerbation of chronic obstructive airways disease Status: Acute Assessment and plan: Patient is wheezing coughing acute dyspnea. Long-term history of smoking a pack of cigarettes per day longer. Certainly looks like acute bronchitis atop COPD. Treatment corticosteroids bronchodilators and antibiotics. Smoking cessation is stressed. There is no evidence of congestive heart failure either radiographically or by his normal BNP. 10/19/16 patient is a little better. We can start tapering steroids. 10/20/2016 patient's wheezing is a little worse today. Would not cut steroids any further at this point. 10/21/2016 his PFTs would indicate that he has moderate COPD and some volume loss that I think is just due to hyperinflation. Needs to be on IV medications while longer. Not ready for discharge yet. Will need a controller agent such as Anoro at discharge Current Visit: Yes (2) Hypothyroid Status: Chronic Assessment and plan: Continuing the Synthroid Current Visit: Yes Qualifiers: Hypothyroidism type: acquired Qualified Code(s): E03.9 - Hypothyroidism, unspecified (3) Tobacco abuse Status: Chronic Assessment and plan: Discussed the need of stopping smoking. 10/19/2016 stressing importance of smoking cessation on a daily basis. 10/21/2016 we have once again discussed the need to stop smoking for good. Current Visit: Yes (4) Blindness, right eye, normal vision left eye Status: Acute Assessment and plan: Head injury as a child. Corneal opacity. Wonder if he would be candidate for corneal transplant. Current Visit: Yes Specialty Discharge - Follow Up or Referrals
[2016-10-21] MEDS: buPROPion 100 MG TABLET PO SCH (08:55)
[2016-10-21] MEDS: methylPREDNISolone SOD SUC 40 MG/1 ML VIAL IV SCH ×2 (08:55→21:03)
[2016-10-21] MEDS: ENOXAPARIN 40 MG/0.4 ML SYRINGE SUBCUT SCH (08:55)
[2016-10-21] MEDS: NIACIN 500 MG TABLET PO SCH (08:56)
[2016-10-21] MEDS: ATORVASTATIN 20 MG TABLET PO SCH (08:56)
[2016-10-21] MEDS: ASPIRIN EC 81 MG TABLET PO SCH (08:56)
[2016-10-21] MEDS: PANTOPRAZOLE 40 MG TABLET PO SCH (08:56)
--- NOTE | 2016-10-21 11:40 | Hospitalist Progress Note ---
Assessment and Plan (1) Congestive heart failure Status: Acute Assessment and plan: He does not appear to have any evidence of acute congestive heart failure at the present time. Follow-up as recommended by cardiology. Current Visit: Yes Qualifiers: Congestive heart failure type: unspecified congestive heart failure type Congestive heart failure chronicity: unspecified congestive heart failure chronicity Qualified Code(s): I50.9 - Heart failure, unspecified (2) Acute exacerbation of chronic obstructive airways disease Status: Acute Assessment and plan: He appears to be significantly improved. I will follow recommendations as per pulmonary. Current Visit: Yes Hospitalist: Subjective Interval history: Patient is doing well. He feels that he is getting better. Pulmonary has recommended that he continue to be hospitalized to undergo his present treatment. Exam - Constitutional Vitals: Period Temp Pulse Resp BP Sys/Del Rosario Pulse Ox Last 24 Hr 97.6 F-98.2 F 61-95 18-20 119-134/69-78 96-100 General appearance: no acute distress - Head Head exam: Present: normal inspection - Neck Neck exam: Present: normal inspection - Respiratory Respiratory exam: Present: clear to auscultation bilaterally - Cardiovascular Cardiovascular exam: Present: regular rate and rhythm - GI/Abdominal GI/Abdominal exam: Present: normal bowel sounds, soft, other (Nontender with no palpable masses or hepatosplenomegaly.) - Extremities Exam Extremities exam: Present: normal inspection - Neurological Exam Neurological exam: Present: alert, oriented X3 - Psychiatric Psychiatric exam: Present: normal affect, normal mood - Skin Skin exam: Present: normal color, warm, intact Results - Labs CBC & BMP: 10/20/16 05:14 10/20/16 05:14 Specialty Discharge - Follow Up or Referrals
[2016-10-21] MEDS: QUEtiapine 100 MG TABLET PO SCH (21:03)
[2016-10-21] MEDS: LEVOFLOXACIN INJ 750 MG in PREMIX 1 EACH IV SCH (23:44)
[2016-10-22] MEDS: ALBUTEROL/IPRATROPIUM 3 ML NEB RESP TX SCH ×4 (00:21→19:43)
[2016-10-22] MEDS: LEVOTHYROXINE 150 MCG TABLET PO SCH (06:02)
--- NOTE | 2016-10-22 08:04 | Hospitalist Progress Note ---
<Cierra Sen - Last Filed: 10/22/16 08:22> Assessment and Plan - Time spent with patient Time spent with patient: Less than 30 minutes (1) Acute exacerbation of chronic obstructive airways disease Status: Acute Assessment and plan: 10/22/16 - Pulmonary is following and greatly appreciate further recommendations in care. PFTs showed moderate restriction and relatively mild obstruction. Pulmonary feels there is a good bit of hyperinflation and incomplete exhalation which makes restriction appear worse than it is; consistent with his COPD. They recommend staying at the same dose of medications and watch him a little longer. He is not ready for discharge yet. He continues to have some bilateral expiratory wheezing - this morning, But overall patient does feel better. Sputum culture final showed normal codi. Continue Antibiotics, steroids, bronchodilators No labs to review this a.m. ordered labs for this morning and for in the a.m. Current Visit: Yes (2) Congestive heart failure Status: Acute Assessment and plan: 10/22/16 Cardiology recommended -Continue aspirin, statin, niacin (10/19/16). -Blood pressure blood pressure and heart rate is well controlled. -No evidence of pulmonary hypertension on echo. -Appropriate dual-chamber pacemaker function, sinus rhythm, tachycardia on telemetry -Recommend follow-up with his pediatric dietician in [place]. Please call with further questions. Current Visit: Yes Qualifiers: Congestive heart failure type: unspecified congestive heart failure type Congestive heart failure chronicity: unspecified congestive heart failure chronicity Qualified Code(s): I50.9 - Heart failure, unspecified Hospitalist: Subjective Interval history: Patient seen and chart reviewed. Mr Sen verbalized having a "pretty good night ". He denies any chest pain, fever, chills, nausea or vomiting. No fever noted in the past 24 hours. still bilateral wheezing noted with auscultation. reports appetites been good and tolerating eating without any problems. Exam - Constitutional Vitals: Period Temp Pulse Resp BP Sys/Del Rosario Pulse Ox Last 24 Hr 97.7 F-98.3 F 63-91 18-20 103-130/62-75 95-99 General appearance: no acute distress - Head Head exam: Present: normal inspection - Eye Eye exam: Present: EOMI, other (slight discoloration to right eye (hx of blindness in rt eye)- chronic/ left eye clear) Pupils: Present: STACEY - Neck Neck exam: Present: normal inspection - Respiratory Respiratory exam: Present: wheezes (bilateral wheezing this a.m.; No acute distress noted; denies any shortness of breath. ) - Cardiovascular Cardiovascular exam: Present: regular rate and rhythm - GI/Abdominal GI/Abdominal exam: Present: normal bowel sounds, soft. Absent: tenderness, rebound - Extremities Exam Extremities exam: Present: full ROM. Absent: edema - Neurological Exam Neurological exam: Present: alert, oriented X3 - Psychiatric Psychiatric exam: Present: normal affect, normal mood - Skin Skin exam: Present: normal color, warm, dry Results - Labs CBC & BMP: 10/20/16 05:14 10/20/16 05:14 Lab Results: I have reviewed the past 24 hour labs Labs: H&H stable - 10/20/16 Electrolytes within normal ranges - 10/20/16 BUN increase to 21 from 15 - 10/20/16 Creatinine stable at 1.00 - 10/20/16 - Impressions ordering a.m labs for today Specialty Discharge - Follow Up or Referrals <Ravi Alvarado - Last Filed: 10/22/16 10:02> Assessment and Plan (1) Congestive heart failure Status: Acute Current Visit: Yes Qualifiers: Congestive heart failure type: unspecified congestive heart failure type Congestive heart failure chronicity: unspecified congestive heart failure chronicity Qualified Code(s): I50.9 - Heart failure, unspecified (2) Acute exacerbation of chronic obstructive airways disease Status: Acute Current Visit: Yes Hospitalist: Subjective Interval history: Patient is slowly improving. He continues on intravenous antibiotics, intravenous corticosteroids, and albuterol ipratropium nebulizer therapy. He is being followed by pulmonary who does not yet feel he is ready for discharge. I will continue his present medications. I hope to discharge him in 24-48 hours. Exam - Constitutional Vitals: Period Temp Pulse Resp BP Sys/Del Rosario Pulse Ox Last 24 Hr 97.7 F-98.3 F 63-91 18-20 103-130/62-75 95-99 Results - Labs CBC & BMP: 10/22/16 08:26 10/22/16 08:26
--- NOTE | 2016-10-22 08:11 | Pulmonology Progress Note ---
Pulmonary - PN: Subj Interval history: This 61-year-old black male came in with an exacerbation of COPD. He is a long- term smoker. He is improved and was moved to the floor yesterday. Slept but is still coughing some. We can start reducing his steroids. 10/20/2016 patient continues to have some wheezing. Probably should not cut steroids further at this point. We need to obtain PFTs to document his COPD and check in severity. This will help us in choosing medications going forward. 10/21/2016 patient feels a little better but is still wheezing. We obtained PFTs yesterday and they do show moderate restriction and relatively mild obstruction. I think there is a good bit of hyperinflation and incomplete exhalation which makes restriction appear worse than it is. These primarily are consistent with his COPD. We need to stay at the same dose of medications and watch him a little longer. He is not ready for discharge yet. He will need a controller agent at discharge such as Anoro. 10/22/2016 feels better. Still having some wheezing and rhonchi. Continue with IV medications and bronchodilators. He relates that he does not have wheezing at baseline. This is still an acute exacerbation of his COPD. Not strong enough to go home yet. Exam (Progress Note) - Constitutional Vitals: Period Temp Pulse Resp BP Sys/Del Rosario Pulse Ox Last 24 Hr 97.7 F-98.3 F 63-91 18-20 103-130/62-75 95-99 Exam: Patient's alert oriented vital signs normal. Right cornea opaque. Left pupil reactive to light. Throat is clear. Neck supple no bruits. Chest reveals prolonged expiratory phase with a few scattered rhonchi and expiratory wheezes. Heart normal rate rhythm no murmurs. Abdomen soft nontender no masses. Extremities no clubbing cyanosis edema. Calves nontender. Little change from yesterday. Results - Labs CBC & BMP: 10/20/16 05:14 10/20/16 05:14 Lab Results: I have reviewed the past 24 hour labs Assessment and Plan (1) Acute exacerbation of chronic obstructive airways disease Status: Acute Assessment and plan: Patient is wheezing coughing acute dyspnea. Long-term history of smoking a pack of cigarettes per day longer. Certainly looks like acute bronchitis atop COPD. Treatment corticosteroids bronchodilators and antibiotics. Smoking cessation is stressed. There is no evidence of congestive heart failure either radiographically or by his normal BNP. 10/19/16 patient is a little better. We can start tapering steroids. 10/20/2016 patient's wheezing is a little worse today. Would not cut steroids any further at this point. 10/21/2016 his PFTs would indicate that he has moderate COPD and some volume loss that I think is just due to hyperinflation. Needs to be on IV medications while longer. Not ready for discharge yet. Will need a controller agent such as Anoro at discharge 10/22/2016 still having exacerbation and needs IV medications and nebulizers while longer. Current Visit: Yes (2) Hypothyroid Status: Chronic Assessment and plan: Continuing the Synthroid Current Visit: Yes Qualifiers: Qualified Code(s): E03.9 - Hypothyroidism, unspecified (3) Tobacco abuse Status: Chronic Assessment and plan: Discussed the need of stopping smoking. 10/19/2016 stressing importance of smoking cessation on a daily basis. 10/21/2016 we have once again discussed the need to stop smoking for good. 10/22/16 reiterating each day the need to stop smoking. Current Visit: Yes (4) Blindness, right eye, normal vision left eye Status: Acute Assessment and plan: Head injury as a child. Corneal opacity. Wonder if he would be candidate for corneal transplant. Current Visit: Yes Specialty Discharge - Follow Up or Referrals
[2016-10-22] MEDS: methylPREDNISolone SOD SUC 40 MG/1 ML VIAL IV SCH ×2 (08:24→21:02)
[2016-10-22] MEDS: PANTOPRAZOLE 40 MG TABLET PO SCH (08:25)
[2016-10-22] MEDS: NIACIN 500 MG TABLET PO SCH (08:25)
[2016-10-22] MEDS: ASPIRIN EC 81 MG TABLET PO SCH (08:25)
[2016-10-22] MEDS: ENOXAPARIN 40 MG/0.4 ML SYRINGE SUBCUT SCH (08:25)
[2016-10-22] MEDS: buPROPion 100 MG TABLET PO SCH (08:25)
[2016-10-22] MEDS: ATORVASTATIN 20 MG TABLET PO SCH (08:25)
[2016-10-22 08:52] LABS: Basophils % 0.1 % (0.0-0.8); Hematocrit 37.7 VOL% (42.0-52.0); Hemoglobin 12.9 GM/DL (14.0-18.0); Immature Granulocytes Absolute 0.19 #; Lymphocytes # 1.2 10*3/uL (1.4-4.0); Mean Corpuscular HGB Conc 34.2 GM/DL (32-36); Mean Corpuscular Hemoglobin 29 PG (27-34); Mean Corpuscular Volume 84.2 FL (87-102); Mean Platelet Volume 11.4 FL (9.6-12.0); Monocytes # 0.4 10*3/uL (0.11-0.8); Monocytes % 4.3 % (1.7-12.7); Neutrophils # 7.5 10*3/uL (1.4-7.4); Neutrophils % 80.6 % (38.7-73.9); Platelet Count 165 T/CUMM (130-400); Red Blood Count 4.48 MC/CUMM (3.8-5.5); Red Cell Distribution Width 19.7 % (9.3-17.3); White Blood Count 9.3 T/CUMM (4-12)
[2016-10-22 09:17] LABS: Calcium 9.5 MG/DL (8.5-10.1); Magnesium 2.4 MG/DL (1.8-2.4); Osmolality,Calculated 283.4 MOS/KG (273-304); Potassium 3.8 MMOL/L (3.5-5.1)
[2016-10-22] MEDS: QUEtiapine 100 MG TABLET PO SCH (21:03)
[2016-10-23] MEDS: LEVOFLOXACIN INJ 750 MG in PREMIX 1 EACH IV SCH (00:19)
[2016-10-23] MEDS: ALBUTEROL/IPRATROPIUM 3 ML NEB RESP TX SCH ×4 (00:21→18:56)
[2016-10-23 05:19] LABS: Basophils % 0.3 % (0.0-0.8); Hematocrit 36.4 VOL% (42.0-52.0); Hemoglobin 12.5 GM/DL (14.0-18.0); Immature Granulocytes % 2.3 %; Immature Granulocytes Absolute 0.25 #; Lymphocytes % 9.6 % (21.2-54.2); Mean Corpuscular HGB Conc 34.3 GM/DL (32-36); Mean Corpuscular Hemoglobin 29 PG (27-34); Mean Corpuscular Volume 84.5 FL (87-102); Mean Platelet Volume 11.3 FL (9.6-12.0); Monocytes # 0.4 10*3/uL (0.11-0.8); Monocytes % 3.9 % (1.7-12.7); Neutrophils # 9.1 10*3/uL (1.4-7.4); Neutrophils % 83.9 % (38.7-73.9); Platelet Count 158 T/CUMM (130-400); Red Blood Count 4.31 MC/CUMM (3.8-5.5); Red Cell Distribution Width 19.6 % (9.3-17.3); White Blood Count 10.8 T/CUMM (4-12)
[2016-10-23 05:48] LABS: Calcium 9.6 MG/DL (8.5-10.1); Magnesium 2.4 MG/DL (1.8-2.4); Osmolality,Calculated 283.4 MOS/KG (273-304); Potassium 4.5 MMOL/L (3.5-5.1)
[2016-10-23 05:49] LABS: Band Neutrophils 1 % (0-10); Giant Platelets Few; Hypochromasia 1+; Lymphocytes 5 % (20-55); Microcytosis Slight; Nucleated Red Blood Cells 1 (0-5); Ovalocytes Slight; Platelet Estimate Normal; Segmented Neutrophils 89 % (50-85); Total Cells Counted 100
[2016-10-23] MEDS: LEVOTHYROXINE 150 MCG TABLET PO SCH (06:37)
--- NOTE | 2016-10-23 08:13 | Pulmonology Progress Note ---
Pulmonary - PN: Subj Interval history: This 61-year-old black male came in with an exacerbation of COPD. He is a long- term smoker. He is improved and was moved to the floor yesterday. Slept but is still coughing some. We can start reducing his steroids. 10/20/2016 patient continues to have some wheezing. Probably should not cut steroids further at this point. We need to obtain PFTs to document his COPD and check in severity. This will help us in choosing medications going forward. 10/21/2016 patient feels a little better but is still wheezing. We obtained PFTs yesterday and they do show moderate restriction and relatively mild obstruction. I think there is a good bit of hyperinflation and incomplete exhalation which makes restriction appear worse than it is. These primarily are consistent with his COPD. We need to stay at the same dose of medications and watch him a little longer. He is not ready for discharge yet. He will need a controller agent at discharge such as Anoro. 10/22/2016 feels better. Still having some wheezing and rhonchi. Continue with IV medications and bronchodilators. He relates that he does not have wheezing at baseline. This is still an acute exacerbation of his COPD. Not strong enough to go home yet. 10/23/2016 patient clearly better today. Lungs not tight. Will reduce steroids. Probably could be discharged tomorrow. Exam (Progress Note) - Constitutional Vitals: Period Temp Pulse Resp BP Sys/Del Rosario Pulse Ox Last 24 Hr 97.3 F-98.0 F 64-83 16-21 121-139/64-82 92-100 Exam: Patient's alert oriented vital signs normal. Right cornea opaque. Left pupil reactive to light. Throat is clear. Neck supple no bruits. Chest reveals prolonged expiratory phase with a few scattered rhonchi. Heart normal rate rhythm no murmurs. Abdomen soft nontender no masses. Extremities no clubbing cyanosis edema. Calves nontender. Results - Labs CBC & BMP: 10/23/16 03:37 10/23/16 03:37 Lab Results: I have reviewed the past 24 hour labs Assessment and Plan (1) Acute exacerbation of chronic obstructive airways disease Status: Acute Assessment and plan: Patient is wheezing coughing acute dyspnea. Long-term history of smoking a pack of cigarettes per day longer. Certainly looks like acute bronchitis atop COPD. Treatment corticosteroids bronchodilators and antibiotics. Smoking cessation is stressed. There is no evidence of congestive heart failure either radiographically or by his normal BNP. 10/19/16 patient is a little better. We can start tapering steroids. 10/20/2016 patient's wheezing is a little worse today. Would not cut steroids any further at this point. 10/21/2016 his PFTs would indicate that he has moderate COPD and some volume loss that I think is just due to hyperinflation. Needs to be on IV medications while longer. Not ready for discharge yet. Will need a controller agent such as Anoro at discharge 10/22/2016 still having exacerbation and needs IV medications and nebulizers while longer. 10/23/2016 improving. Taper medications. Consider discharge tomorrow. Current Visit: Yes (2) Hypothyroid Status: Chronic Assessment and plan: Continuing the Synthroid Current Visit: Yes Qualifiers: Hypothyroidism type: acquired Qualified Code(s): E03.9 - Hypothyroidism, unspecified (3) Tobacco abuse Status: Chronic Assessment and plan: Discussed the need of stopping smoking. 10/19/2016 stressing importance of smoking cessation on a daily basis. 10/21/2016 we have once again discussed the need to stop smoking for good. 10/22/16 reiterating each day the need to stop smoking. Current Visit: Yes (4) Blindness, right eye, normal vision left eye Status: Acute Assessment and plan: Head injury as a child. Corneal opacity. Wonder if he would be candidate for corneal transplant. Current Visit: Yes Specialty Discharge - Follow Up or Referrals
[2016-10-23] MEDS: buPROPion 100 MG TABLET PO SCH (08:31)
[2016-10-23] MEDS: NIACIN 500 MG TABLET PO SCH (08:31)
[2016-10-23] MEDS: ENOXAPARIN 40 MG/0.4 ML SYRINGE SUBCUT SCH (08:31)
[2016-10-23] MEDS: PANTOPRAZOLE 40 MG TABLET PO SCH (08:31)
[2016-10-23] MEDS: ATORVASTATIN 20 MG TABLET PO SCH (08:31)
[2016-10-23] MEDS: methylPREDNISolone SOD SUC 40 MG/1 ML VIAL IV SCH ×2 (08:31→08:56)
[2016-10-23] MEDS: ASPIRIN EC 81 MG TABLET PO SCH (08:32)
--- NOTE | 2016-10-23 09:26 | Hospitalist Progress Note ---
Assessment and Plan (1) Congestive heart failure Status: Acute Assessment and plan: He does not appear to have any evidence of acute congestive heart failure at the present time. Follow-up as recommended by cardiology. Current Visit: Yes Qualifiers: Congestive heart failure type: unspecified congestive heart failure type Congestive heart failure chronicity: unspecified congestive heart failure chronicity Qualified Code(s): I50.9 - Heart failure, unspecified (2) Acute exacerbation of chronic obstructive airways disease Status: Acute Assessment and plan: He appears to be significantly improved. I will follow recommendations as per pulmonary. Current Visit: Yes Hospitalist: Subjective Interval history: Patient is doing well with no complaints. He is not experiencing shortness of breath, wheezing, coughing, or chest pain. He is walking in the [place] with no difficulty. He is being followed by pulmonary who has recommended probable discharge tomorrow morning. Exam - Constitutional Vitals: Period Temp Pulse Resp BP Sys/Del Rosario Pulse Ox Last 24 Hr 97.3 F-98.0 F 64-83 16-21 121-139/64-82 92-100 General appearance: no acute distress - Head Head exam: Present: normal inspection - Neck Neck exam: Present: normal inspection - Respiratory Respiratory exam: Present: clear to auscultation bilaterally - Cardiovascular Cardiovascular exam: Present: regular rate and rhythm - GI/Abdominal GI/Abdominal exam: Present: normal bowel sounds, soft - Extremities Exam Extremities exam: Present: normal inspection - Neurological Exam Neurological exam: Present: alert, oriented X3 - Psychiatric Psychiatric exam: Present: normal affect - Skin Skin exam: Present: normal color, warm, intact Results - Labs CBC & BMP: 10/23/16 03:37 10/23/16 03:37 Specialty Discharge - Follow Up or Referrals
[2016-10-23] MEDS: QUEtiapine 100 MG TABLET PO SCH (21:29)
[2016-10-24] MEDS: ALBUTEROL/IPRATROPIUM 3 ML NEB RESP TX SCH ×2 (00:30→07:00)
[2016-10-24] MEDS: LEVOFLOXACIN INJ 750 MG in PREMIX 1 EACH IV SCH (01:55)
[2016-10-24] MEDS: LEVOTHYROXINE 150 MCG TABLET PO SCH (07:01)
--- NOTE | 2016-10-24 07:32 | Pulmonology Progress Note ---
Pulmonary - PN: Subj Interval history: This 61-year-old black male came in with an exacerbation of COPD. He is a long- term smoker. He is improved and was moved to the floor yesterday. Slept but is still coughing some. We can start reducing his steroids. 10/20/2016 patient continues to have some wheezing. Probably should not cut steroids further at this point. We need to obtain PFTs to document his COPD and check in severity. This will help us in choosing medications going forward. 10/21/2016 patient feels a little better but is still wheezing. We obtained PFTs yesterday and they do show moderate restriction and relatively mild obstruction. I think there is a good bit of hyperinflation and incomplete exhalation which makes restriction appear worse than it is. These primarily are consistent with his COPD. We need to stay at the same dose of medications and watch him a little longer. He is not ready for discharge yet. He will need a controller agent at discharge such as Anoro. 10/22/2016 feels better. Still having some wheezing and rhonchi. Continue with IV medications and bronchodilators. He relates that he does not have wheezing at baseline. This is still an acute exacerbation of his COPD. Not strong enough to go home yet. 10/23/2016 patient clearly better today. Lungs not tight. Will reduce steroids. Probably could be discharged tomorrow. 10/24/2016 he has mild expiratory rhonchi. Should be ready for discharge. Oral prednisone 40 mg daily for 5 days would be my recommendation. Probably needs to Levaquin another 3 or 4 days by mouth. We will try to arrange for him to get Anoro 1 puff daily post discharge. He follows up with Dr. Minh Loera and his medical group in [facility]. Needs appointment there. Exam (Progress Note) - Constitutional Vitals: Period Temp Pulse Resp BP Sys/Del Rosario Pulse Ox Last 24 Hr 97.4 F-98.0 F 64-84 14-20 110-135/66-77 96-100 Exam: Patient's alert oriented vital signs normal. Right cornea opaque. Left pupil reactive to light. Throat is clear. Neck supple no bruits. Chest reveals prolonged expiratory phase with a few scattered rhonchi. Heart normal rate rhythm no murmurs. Abdomen soft nontender no masses. Extremities no clubbing cyanosis edema. Calves nontender. Results - Labs CBC & BMP: 10/23/16 03:37 10/23/16 03:37 Lab Results: I have reviewed the past 24 hour labs Assessment and Plan (1) Acute exacerbation of chronic obstructive airways disease Status: Acute Assessment and plan: Patient is wheezing coughing acute dyspnea. Long-term history of smoking a pack of cigarettes per day longer. Certainly looks like acute bronchitis atop COPD. Treatment corticosteroids bronchodilators and antibiotics. Smoking cessation is stressed. There is no evidence of congestive heart failure either radiographically or by his normal BNP. 10/19/16 patient is a little better. We can start tapering steroids. 10/20/2016 patient's wheezing is a little worse today. Would not cut steroids any further at this point. 10/21/2016 his PFTs would indicate that he has moderate COPD and some volume loss that I think is just due to hyperinflation. Needs to be on IV medications while longer. Not ready for discharge yet. Will need a controller agent such as Anoro at discharge 10/22/2016 still having exacerbation and needs IV medications and nebulizers while longer. 10/23/2016 improving. Taper medications. Consider discharge tomorrow. 10/24/2016 patient is improved. Could be discharged on oral prednisone and Levaquin. We will try to get him set up on Anoro one puff daily for long-term control. Of course smoking cessation is the most important thing for his COPD. Current Visit: Yes (2) Hypothyroid Status: Chronic Assessment and plan: Continuing the Synthroid Current Visit: Yes Qualifiers: Hypothyroidism type: acquired Qualified Code(s): E03.9 - Hypothyroidism, unspecified (3) Tobacco abuse Status: Chronic Assessment and plan: Discussed the need of stopping smoking. 10/19/2016 stressing importance of smoking cessation on a daily basis. 10/21/2016 we have once again discussed the need to stop smoking for good. 10/22/16 reiterating each day the need to stop smoking. 10/24/2016 once again it is critical that he stay off cigarettes. This was discussed with him again. Current Visit: Yes (4) Blindness, right eye, normal vision left eye Status: Chronic Assessment and plan: Head injury as a child. Corneal opacity. Wonder if he would be candidate for corneal transplant. Current Visit: Yes Specialty Discharge - Follow Up or Referrals
[2016-10-24] MEDS: methylPREDNISolone SOD SUC 40 MG/1 ML VIAL IV SCH (08:53)
[2016-10-24] MEDS: ENOXAPARIN 40 MG/0.4 ML SYRINGE SUBCUT SCH (08:53)
[2016-10-24] MEDS: buPROPion 100 MG TABLET PO SCH (08:54)
[2016-10-24] MEDS: PANTOPRAZOLE 40 MG TABLET PO SCH (08:54)
[2016-10-24] MEDS: ASPIRIN EC 81 MG TABLET PO SCH (08:54)
[2016-10-24] MEDS: NIACIN 500 MG TABLET PO SCH (08:54)
[2016-10-24] MEDS: ATORVASTATIN 20 MG TABLET PO SCH (08:54)
--- NOTE | 2016-10-24 09:54 | Discharge Summary ---
Hospital Course - Hospital Course Hospital Course: Patient has a previous history of chronic obstructive pulmonary disease. He was admitted to the hospital with complaints of shortness of breath and cough productive of purulent appearing sputum. A chest x-ray demonstrated evidence of pneumonia. He was diagnosed with both pneumonia and acute exacerbation of chronic obstructive pulmonary disease. He was seen in consultation by both pulmonary and cardiology. It was the impression of cardiology that it was not experiencing congestive heart failure. He was treated in the hospital with intravenous antibiotics, intravenous corticosteroids, and albuterol ipratropium nebulizer therapy. He improved significantly during his hospitalization. At the time of his discharge he was comfortable with no complaints. Diagnosis - Discharge Diagnosis (1) Congestive heart failure Status: Chronic (2) Acute exacerbation of chronic obstructive airways disease Status: Acute Specialty Discharge - Follow Up or Referrals Discharge Plan - Discharge Data Condition at Discharge: Stable Discharge Diet: advance to your usual diet Activity: resume usual activities as tolerated Driving: no restrictions - Discharge Medications New Levofloxacin Tab [Levaquin Tab] 500 mg PO DAILY #5 tablet predniSONE TAB [PredniSONE] 20 mg PO DAILY #10 tablet Continue Quetiapine Fumarate 800 mg PO BEDTIME Hydrocodone/Acetaminophen [[place] 10-325 Tablet] 1 each PO BID Atorvastatin [Lipitor] 20 mg PO DAILY Omeprazole 20 mg PO DAILY Levothyroxine Tab [Synthroid Tab] 150 mcg PO DAILY Niacin (Inositol Niacinate) [Niacin 500 mg Capsule] 500 mg PO DAILY buPROPion [Wellbutrin] 100 mg PO DAILY Aspirin EC Tab 81 mg PO DAILY - Follow Up or Referral - Forms/Instructions Instructions: How to Stop Smoking (GEN), Chronic Obstructive Pulmonary Disease (GEN), Cigarette Smoking and Your Health, 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 [employer] (GEN) Exam - Constitutional Vitals: Period Temp Pulse Resp BP Sys/Del Rosario Pulse Ox Last 24 Hr 97.4 F-98.0 F 64-84 14-20 110-135/66-77 96-100 General appearance: no acute distress - Head Head exam: Present: normal inspection - Neck Neck exam: Present: normal inspection - Respiratory Respiratory exam: Present: clear to auscultation bilaterally - Cardiovascular Cardiovascular exam: Present: regular rate and rhythm - GI/Abdominal GI/Abdominal exam: Present: normal bowel sounds, soft - Extremities Exam Extremities exam: Present: normal inspection - Neurological Exam Neurological exam: Present: alert, oriented X3 - Skin Skin exam: Present: normal color, warm, intact DS: Provider Date of admission: 10/17/16 21:37 Primary care physician: . No PCP Attending physician on admission: Rachna Grant MD Consults: 10/17/16 21:37 Consult to Physician [CONS] Routine Comment: CHF Consulting Provider: Cardiology - [facility] 10/17/16 23:14 Consult to Pulmonary Rehabilitation [CONS] Routine Reason for Pulmonary Rehabilitation: COPD 10/17/16 23:34 Consult to Physician [CONS] Routine Comment: COPD Consulting Provider: Osito Hamilton Discharging clinician: Ravi Alvarado
[2016-10-24 11:57] VITALS: BP 126/78
--- NOTE | 2016-10-28 09:09 | Physician Query Form ---
CLICK EDIT DOCUMENT TO SELECT QUERY ANSWER --> OK --> SIGN Kelsea Jesus RN Clinical Application Consultant W) [phone] (f) [phone] [email or web address]: Make your selection(s) from the choices in EACH section by typing an "x" and enter comments in the comment section. Please use your independent medical judgment in providing your response. This request does not imply that any particular answer is desired or expected. CLINICAL INDICATORS: (Providers should not edit this section) Based on documentation of "Acute CHF" Echo shows Ef of 55% with grade 1 diastolic dysfunction. BNP of 49. Treated with IV Lasix. Please provide further specificity regarding CHF. ACUITY: ( ) Acute ( ) Chronic ( x) Acute on Chronic ( ) Clinically unable to determine TYPE: ( ) Systolic (HFrEF - heart failure with reduced systolic function/EF) (x ) Diastolic (HFpEF - heart failure with preserved systolic function/EF) ( ) Combined Systolic/Diastolic ( ) Other, please specify: ( ) Clinically unable to determine ( ) Past Medical History of Systolic CHF ( x) Past Medical History of Diastolic CHF ( ) Clinically unable to determine COMMENTS: PLEASE ALSO DOCUMENT RESPONSE IN PROGRESS NOTES AND/OR DISCHARGE SUMMARY Use of terms such as suspected, likely, or probable (associated with a specific diagnosis that is being evaluated, monitored, or treated as if it exists) are acceptable and can be restated in the discharge summary if not ruled out. MTDD
== END 2016-10-24 12:45 | disposition home or self-care (01) | DRG 190 ==
LOC: EDBD → N.ED 18:41 → N.EDINP 21:37 → SUATTDRO 21:37 → N.CC 22:24 → N.TELES 10-18 13:06
PROVIDERS: ADMIT Family Medicine